=== PATIENT | female | born 1990 | race African-American/Black ===

== ENCOUNTER → 2022-03-11 | Emergency (ER) | payer SELFPAY ==
[2022-03-11 19:55] VITALS: BP 110/74; PULSE 80; TEMP 98.6; BMI 23.7
== END ==
LOC: JER 19:25
DX: R00.2 Palpitations (principal)
CPT/HCPCS: 99281-25

== ENCOUNTER 2023-08-23 10:23 | Emergency (ER) | payer OTHER ==
[2023-08-23] MEDS ORDERED: ONDANSETRON 4 MG/2 ML VIAL IVPUSH ONE (10:44)
[2023-08-23] MEDS ORDERED: ACETAMINOPHEN 1000 MG/100 ML BAG IVPB ONE (10:44)
[2023-08-23] MEDS ORDERED: PROCHLORPERAZINE INJECTION 10 MG/2 ML VIAL IVPB ONE ×2 (10:44→10:48)
[2023-08-23 10:54] VITALS: PULSE 95; RESP 18; BMI 24.8
[2023-08-23] MEDS ORDERED: PROCHLORPERAZINE INJECTION 10 MG/2 ML VIAL ONE (11:10)
[2023-08-23] MEDS ORDERED: ACETAMINOPHEN INJECTION 100 ML IVPB ONE (11:10)
[2023-08-23 12:04] LABS: HEMOGLOBIN 10.8 G/dL (10.7-15.3); MCH 30.5 pg (25.7-33.7); MCHC 32.8 g/dl (32.0-36.0); MEAN CELL VOLUME 92.9 fl (80-96); MEAN PLT VOLUME 7.7 fl (7.5-11.1); PLATELET COUNT 301.8 10^3/uL (134-434); RBC 3.55 10^6/uL (3.60-5.2); RDW 15.6 % (11.6-15.6); WHITE BLOOD COUNT 7.2 10^3/uL (4.0-10.8)
[2023-08-23 12:15] LABS: ALBUMIN 4.3 g/dl (3.4-5.0); BILIRUBIN,TOTAL 0.4 mg/dl (0.2-1); CALCIUM 9.4 mg/dl (8.5-10.1); CREATININE 1.1 mg/dl (0.6-1.3); POTASSIUM 4.2 mmol/L (3.5-5.1); TOT PROT 7.2 g/dl (6.4-8.2)
[2023-08-23 12:47] LABS: EPITHELIAL CELLS 0-5 /hpf
[2023-08-23] MEDS ORDERED: diphenhydrAMINE HCL 25 MG CAPSULE (FP) PO ONE ×2 (12:51→13:22)
[2023-08-23 13:11] LABS: PLATELET ESTIMATE ADEQUATE
[2023-08-23 13:28] VITALS: BP 112/69; TEMP 98.4
== END 2023-08-23 16:17 | disposition home or self-care (01) ==
LOC: FER 10:23
PROC: 3E033NZ Introduction of Analgesics, Hypnotics, Sedatives into Peripheral Vein, Percutaneous Approach (ICD-10-PCS; principal; 2023-08-23)
PROC: 3E033GC Introduction of Other Therapeutic Substance into Peripheral Vein, Percutaneous Approach (ICD-10-PCS; 2023-08-23)
DX: R51.9 Headache, unspecified (principal); R09.81 Nasal congestion; H53.71 Glare sensitivity; R11.0 Nausea; U07.1 COVID-19
CPT/HCPCS: 0241U-QW; 36415; 70450-TC; 80053; 81003; 81015; 81025; 85027; 87086; 93005; 99285-25